=== PATIENT | male | born 1965 | race Caucasian/White ===

== ENCOUNTER 2018-03-04 20:02 | Observation (INO) | payer OTHER ==
[~2018-03-04] VITALS: Ht 170.2 cm; Wt 101.2 kg
[2018-03-04 21:53] LABS: HEMOGLOBIN 13.4 G/DL (12.5-16.6); MCH 27.9 PG (29.0-34.0); MCHC 35.3 G/DL (30.0-36.0); PLATELET COUNT 253 K/uL (156-360); RBC DIS.WIDTH-CV 13.2 % (11.8-14.6); RBC DIS.WIDTH-SD 37.5 % (39-53); RED BLOOD COUNT 4.81 M/uL (4.00-5.50); WHITE BLOOD COUNT 10.9 K/uL (4.1-10.2)
[2018-03-04 22:02] LABS: PTT 28.8 SEC (25-37)
[2018-03-04 22:05] LABS: ALBUMIN 4.2 g/dL (3.2-4.8)
[2018-03-04 22:06] LABS: CHLORIDE 101 mEq/L (99-109); POTASSIUM 3.8 mEq/L (3.7-5.4); SODIUM 138 mEq/L (136-147)
[2018-03-04 22:08] LABS: GLUCOSE 132 mg/dL (70-99); TOTAL PROTEIN 7.2 g/dL (6.4-8.3)
[2018-03-04 22:10] LABS: TOTAL BILIRUBIN 0.9 mg/dL (0.0-1.0)
[2018-03-04 22:11] LABS: ALKALINE PHOSPHATASE 99 IU/L (3-129)
[2018-03-04 22:12] LABS: GFR ESTIMATE (CALCULATED) > 59 mL/min/ (58.99-99999)
[2018-03-04 22:13] LABS: AST (GOT) 27 IU/L (2-34); UREA NITROGEN (BUN) 12 mg/dL (9-23)
[2018-03-04 22:14] LABS: ALT (GPT) 40 IU/L (3-49)
[2018-03-04 22:15] LABS: LIPASE 21 U/L (1.0-51.0)
[2018-03-04] MEDS ORDERED: WELLBUTRIN XL150 MG PO (23:09)
[2018-03-04] MEDS ORDERED: ZESTORETIC 10-1 EAC1 PO (23:10)
[2018-03-04] MEDS ORDERED: PROZAC20 MG PO (23:11)
[2018-03-04] MEDS ORDERED: PROZAC40 MG PO (23:11)
[2018-03-04] MEDS ORDERED: ANTI-DIARRHEA2 MG PO (23:12)
[2018-03-04] MEDS ORDERED: ZOFRAN4 MG PO (23:12)
[2018-03-04] MEDS ORDERED: OMEPRAZOLE40 M1 PO (23:13)
[2018-03-04] MEDS ORDERED: LASIX40 MG PO (23:13)
[2018-03-04] MEDS ORDERED: BELSOMRA10 MG PO (23:14)
[2018-03-04] MEDS ORDERED: SEROQUEL50 MG PO (23:14)
[2018-03-04] MEDS ORDERED: KLOR-CON M2020 MEQ PO (23:14)
[2018-03-04] MEDS ORDERED: OXYCODONE HCL10 MG PO (23:14)
[2018-03-04] MEDS ORDERED: LIORESAL10 MG PO (23:15)
[2018-03-04] MEDS ORDERED: PROTONIX40 MG PO (23:15)
[2018-03-04] MEDS ORDERED: JANUVIA100 MG PO (23:16)
[2018-03-04] MEDS ORDERED: LIPITOR20 MG PO (23:16)
[2018-03-04] MEDS ORDERED: ADVAIR 250/501 DISK IH (23:17)
[2018-03-04] MEDS ORDERED: PROAIR HFA8.5 GM IH (23:17)
[2018-03-04] MEDS ORDERED: A PO (23:18)
[2018-03-05 00:26] LABS: HEMATOCRIT 35.2 % (38.0-50.0); HEMOGLOBIN 12.5 G/DL (12.5-16.6); MCV 79.8 FL (86-99)
[2018-03-05 02:15] VITALS: BP 114/63
[2018-03-05 03:12] LABS: APPEARANCE CLEAR ((CLEAR)); BILIRUBIN NEGATIVE; BLOOD SMALL; COLOR STRAW ((YELLOW)); GLUCOSE (STRIP) NEGATIVE; KETONES NEGATIVE; LEUKOCYTES NEGATIVE; NITRITE NEGATIVE; PROTEIN (STRIP) NEGATIVE; SPECIFIC GRAVITY 1.008 (1.000-1.030); UROBILINOGEN 0.2 MG/DL (0.2-1.0)
[2018-03-05 03:16] LABS: BACTERIA NONE SEEN /HPF; EPITHELIAL CELLS NONE SEEN /HPF; MUCUS TRACE /LPF; RED BLOOD CELLS 0-5 /HPF (0-5); UCUL ADDED? NO; WHITE BLOOD CELLS 0-5 /HPF (0-5)
[2018-03-05 05:29] LABS: HEMATOCRIT 35.3 % (38.0-50.0); HEMOGLOBIN 11.9 G/DL (12.5-16.6); MCV 81.5 FL (86-99)
[2018-03-05 07:10] VITALS: BP 113/63
[2018-03-05 08:51] LABS: HEMATOCRIT 34.8 % (38.0-50.0); HEMOGLOBIN 11.7 G/DL (12.5-16.6); MCH 27.3 PG (29.0-34.0); MCHC 33.6 G/DL (30.0-36.0); MCV 81.3 FL (86-99); PLATELET COUNT 203 K/uL (156-360); RBC DIS.WIDTH-CV 13.3 % (11.8-14.6); RBC DIS.WIDTH-SD 39.5 % (39-53); RED BLOOD COUNT 4.28 M/uL (4.00-5.50)
[2018-03-05 12:05] VITALS: BP 116/58
[2018-03-05 12:48] LABS: HEMATOCRIT 35.9 % (38.0-50.0); HEMOGLOBIN 11.9 G/DL (12.5-16.6); MCV 81.8 FL (86-99)
[2018-03-05 15:42] VITALS: BP 130/74
[2018-03-05 18:21] LABS: HEMATOCRIT 37.7 % (38.0-50.0); HEMOGLOBIN 12.6 G/DL (12.5-16.6); MCV 82.5 FL (86-99)
[2018-03-07 09:18] LABS: HEMOGLOBIN A1c (GLYCOHEMOGLOB) 6.9 % (Below 5.7)
== END 2018-03-05 18:56 | disposition home or self-care (01) ==
LOC: EME 20:02 → 4SOUTH 23:00 → EDOF 23:00 → ENRESERV 23:02 → 4SOUTH 03-05 01:58 → ENPENDDIS 03-05 17:33 → 4SOUTH 03-05 18:56
PROVIDERS: Emergency Medicine; Hospitalist; Physician Assistant Medical; Specialist
DX: K92.1 Melena (principal); R74.0 Nonspecific elevation of levels of transaminase and lactic acid dehydrogenase [LDH]; K52.9 Noninfective gastroenteritis and colitis, unspecified; E11.9 Type 2 diabetes mellitus without complications; I10 Essential (primary) hypertension; E78.5 Hyperlipidemia, unspecified; G80.9 Cerebral palsy, unspecified; K64.8 Other hemorrhoids; Z98.890 Other specified postprocedural states; G89.29 Other chronic pain; M54.9 Dorsalgia, unspecified; M25.511 Pain in right shoulder; F41.9 Anxiety disorder, unspecified; F32.9 Major depressive disorder, single episode, unspecified; J44.9 Chronic obstructive pulmonary disease, unspecified; K21.9 Gastro-esophageal reflux disease without esophagitis; Z72.0 Tobacco use; Z83.3 Family history of diabetes mellitus; Z82.49 Family history of ischemic heart disease and other diseases of the circulatory system; R60.0 Localized edema; Z79.84 Long term (current) use of oral hypoglycemic drugs
CPT/HCPCS: 73030; 74177; 80053; 81003; 82948; 83036; 83605; 83690; 85014; 85018; 85027; 85610; 85730; 86850; 86900; 86901; 93005; 94640; 99202; G0378; J7030; J7120

== ENCOUNTER 2018-04-16 10:31 | Emergency (ER) | payer OTHER ==
[~2018-04-16] VITALS: Ht 167.6 cm; Wt 90.9 kg
[~2018-04-16 10:31] MED LIST: A PO; ADVAIR 250/501 DISK IH; ANTI-DIARRHEA2 MG PO; BELSOMRA10 MG PO; JANUVIA100 MG PO; KLOR-CON M2020 MEQ PO; LASIX40 MG PO; LIORESAL10 MG PO; LIPITOR20 MG PO; OMEPRAZOLE40 M1 PO; OXYCODONE HCL10 MG PO; PROAIR HFA8.5 GM IH; PROTONIX40 MG PO; PROZAC20 MG PO; PROZAC40 MG PO; SEROQUEL50 MG PO; WELLBUTRIN XL150 MG PO; ZESTORETIC 10-1 EAC1 PO; ZOFRAN4 MG PO
[2018-04-16 10:50] LABS: HEMATOCRIT 38.3 % (38.0-50.0); HEMOGLOBIN 13.4 G/DL (12.5-16.6); MCH 27.9 PG (29.0-34.0); MCV 79.8 FL (86-99); PLATELET COUNT 261 K/uL (156-360); RBC DIS.WIDTH-CV 13.4 % (11.8-14.6); RBC DIS.WIDTH-SD 38.1 % (39-53); WHITE BLOOD COUNT 8.3 K/uL (4.1-10.2)
[2018-04-16 10:58] LABS: CHLORIDE 98 mEq/L (99-109); POTASSIUM 3.6 mEq/L (3.7-5.4); SODIUM 134 mEq/L (136-147)
[2018-04-16 11:00] LABS: GLUCOSE 361 mg/dL (70-99)
[2018-04-16 11:04] LABS: CREATININE 1.2 mg/dL (0.6-1.3); GFR ESTIMATE (CALCULATED) > 59 mL/min/ (58.99-99999)
[2018-04-16 11:05] LABS: UREA NITROGEN (BUN) 15 mg/dL (9-23)
[2018-04-16] MEDS ORDERED: ANUSOL HC,ANUCO25 MG PR (11:14)
[2018-04-16 11:15] VITALS: BP 166/96
== END 2018-04-16 11:50 | disposition home or self-care (01) ==
LOC: EME 10:31
DX: K64.8 Other hemorrhoids (principal); G80.9 Cerebral palsy, unspecified; J44.9 Chronic obstructive pulmonary disease, unspecified; K21.9 Gastro-esophageal reflux disease without esophagitis; G89.29 Other chronic pain; M54.9 Dorsalgia, unspecified; F32.9 Major depressive disorder, single episode, unspecified; F17.200 Nicotine dependence, unspecified, uncomplicated; Z79.51 Long term (current) use of inhaled steroids
CPT/HCPCS: 80048; 85027; 86850; 86900; 86901; 99281; 99283